=== PATIENT | male | born 1955 | race Caucasian/White ===

== ENCOUNTER → 2016-07-21 | Outpatient (CLI) | payer BC | LOC: CIMAGING 10:17 | PROVIDERS: ATTEND Family Medicine | DX: R91.8 Other nonspecific abnormal finding of lung field (principal) | CPT/HCPCS: 71250-PO ==

== ENCOUNTER → 2016-08-27 | Outpatient (CLI) | payer BC | LOC: FIMAGING 08:54 | PROVIDERS: ATTEND Surgery | DX: Z01.818 Encounter for other preprocedural examination (principal); K56.60 Unspecified intestinal obstruction ==

== ENCOUNTER 2016-09-18 08:06 | Inpatient (IN) | payer BC ==
--- NOTE | 2016-09-17 18:36 | GHP ---
[f rep st] PREOP HISTORY AND PHYSICAL DATE OF ADMISSION: 09/18/2016 HISTORY OF PRESENT ILLNESS: The patient is a 61-year-old male who underwent sigmoid colon colectomy with low anterior anastomosis and splenic flexure mobilization, laparoscopic cholecystectomy, and l aparoscopic intraabdominal orchiectomy on 03/13/2015 for recurrent diverticulitis with an abscess, c holelithiasis, and an undescended left testicle respectively. He also has a past medical history fo r a suspected colon cancer that was resected in May 2010 with benign findings. The patient reports having intermittent left lower quadrant abdominal pain and intermittent narrow, small, and painful bowel movements. 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 It was last measured in September at 8 mm. He also complains of 2 fat ty tissue masses, one on each shoulder, which he would also like removed if he is to have surgery. Patient had a barium enema characterizing this stricture, and it is amenable to surgical correction. PAST MEDICAL HISTORY: Please see above. SURGICAL HISTORY: Please see above. MEDICATIONS: Include Nexium. ALLERGIES: No known drug allergies. SOCIAL HISTORY: Patient is . FAMILY HISTORY: Noncontributory. REVIEW OF SYSTEMS: 10-point review of systems negative aside from the HPI. PHYSICAL EXAMINATION: GENERAL: Well-developed, well-nourished 61-year-old male, alert and oriented x3 and in no acute distress. HEENT: Normocephalic, atraumatic. No jaundice. CHEST: Clear to au scultation bilaterally. CARDIAC: Regular rate and rhythm. ABDOMEN: Soft, nontender. Well-healed scar. No hernias. EXTREMITIES: Warm and dry. IMPRESSION: This is a 61-year-old male with a history of colon resection, now with an anastomotic s tricture recalcitrant to colonoscopic dilation. PLAN: Plan is to proceed with laparoscopic, possible open, anastomotic resection and revision. Ris ks and options have been discussed including, but not limited to, bleeding, infection, nerve injury, recurrence, damage to surrounding structures, open surgery, anastomotic leak, anastomotic stricture , and other problems, and he requests to proceed. /[id number]/MODL
[2016-09-18] MEDS ORDERED: LR 1,000 ML IV SCH (08:19)
[2016-09-18] MEDS ORDERED: cefOXitin SODIUM 2 GM in D5W 100 ML IV ONE (08:19)
[2016-09-18] MEDS ORDERED: ONDANSETRON 4 MG/2 ML VIAL IVP ONE (08:19)
[2016-09-18] MEDS ORDERED: LR 1,000 ML IV ONE (08:27)
[2016-09-18] MEDS ORDERED: LIDOCAINE 1% 2 ML INJ ID PRN (08:27)
[2016-09-18] MEDS ORDERED: BUPIVACAINE 0.5% 30 ML SDV ONE ×2 (08:47→12:32)
[2016-09-18] MEDS ORDERED: HEPARIN 1000 UNIT/1 ML MDV ONE (08:47)
[2016-09-18] MEDS ORDERED: ceFAZolin 1 GM/5 ML SYR ONE (08:47)
[2016-09-18] MEDS ORDERED: MIDAZOLAM 2 MG/2 ML VIAL IVP ONE (08:51)
--- NOTE | 2016-09-18 08:54 | PDANEPAE ---
ANE History of Present Illness Laparoscopic vs. open colon resection ANE Past Medical History - Cardiovascular History Hx Hypertension: No Hx Arrhythmias: No Hx Chest Pain: No Hx Coronary Artery / Peripheral Vascular Disease: No Hx CHF / Valvular Disease: No Hx Palpitations: No - Pulmonary History Hx COPD: No Hx Asthma/Reactive Airway Disease: No Hx Recent Upper Respiratory Infection: No Hx Oxygen in Use at Home: No Hx Sleep Apnea: No Sleep Apnea Screening Result - Last Documented: Negative - Neurologic History Hx Cerebrovascular Accident: No Hx Seizures: No Hx Dementia: No - Endocrine History Hx Diabetes: No Hypothyroid: No Hyperthyroid: No Obesity: no - Renal History Hx Renal Disorders: Yes Renal History Comment: URETHRAL STENT IN PAST /REMOVED - Liver History Hx Hepatic Disorders: Yes Hepatic History Comment: CHOLECYSTECTOMY - Neurological & Psychiatric Hx Hx Neurological and Psychiatric Disorders: Yes Neurological / Psychiatric History Comment: OCCASIONAL MIGRAINE THINKS ITS SINUS RELATED - Cancer History Hx Cancer: No - Congenital Disorder History Hx Congenital Disorders: No - GI History GERD: mild Hx Gastrointestinal Disorders: Yes Gastrointestinal History Comment: REFLUX. DIVERTICULITIS ATTACKS X 2. ESOPHAGEL DILATION 2012 - Other Health History Other Health History: UNDESCENDED LT TESTICLE. OSTEOARTHRITIS - Chronic Pain History Chronic Pain: No - Surgical History Prior Surgeries: 02/2015 BOWEL RESECTION. CHOLECYSTECTOMY. 09/2015 COLONOSCOPY W/BALLOON. URETHEROSCOPY WITH STENT 2011 WITH POST STENT REMVL. COLONOSCOPIES X3. TONSILLECTOMY ANE Review of Systems Review of systems is: negative - Exercise capacity Exercise capacity: >=4 METS METS (RN): 4 METS - Systems Constitutional: Reports: no symptoms EENMT: Reports: no symptoms Cardiac: Reports: no symptoms Respiratory: Reports: no symptoms Gastrointestinal: Reports: no symptoms Genitourinary: Reports: hematuria (Last 2011) Muscolosketal: Reports: no symptoms Skin: Reports: no symptoms Neurological: Reports: headache Hematologic/Lymphatic: Reports: no symptoms ANE Patient History - Allergies Allergies/Adverse Reactions: No Known Allergies Allergy (Verified 11/12/15 10:08) - Home Medications Home Medications: Esomeprazole Mag Trihydrate [Nexium] 40 mg PO DAILY 07/18/14 [Last Taken ] Fluticasone Nasal [Flonase Nasal [place]] 1 sprays NASAL DAILY PRN 08/22/15 [Last Taken 09/07/15] Herbals/Supplements -Info Only 1 ea PO DAILY 09/09/15 [Last Taken Unknown] - NPO status NPO Since - Solids (Date): 09/17/16 NPO Since - Solids (Time): 11:00 - Anes Hx Anes Hx: no prior problems - Smoking Hx Smoking Status: Never smoked Marijuana use: No - Alcohol Use Alcohol Use: Occasionally - Family Anes Hx Family Anes Hx: neg - N/A ANE Labs/Vital Signs - Vital Signs Height: 167.64 cm Weight: 73.482 kg ANE Physical Exam - Airway Neck exam: decreased ROM Mallampati Score: Class 3 Mouth exam: normal dental/mouth exam - Pulmonary Pulmonary: no respiratory distress, no rales or rhonchi, clear to auscultation - Cardiovascular Cardiovascular: regular rate and rhythym, no murmur, rub, or gallop - ASA Status ASA Status: II ANE Anesthesia Plan Anesthesia Plan: general endotracheal anesthesia
[2016-09-18 09:03] LABS: % IMMATURE GRANULYOCYTES 0.5 % (0.0-1.1); ABSOLUTE IMMATURE GRANULOCYTES 0.04 10^3/uL (0.00-0.10); ADD DIFF? NO; ADD MORPH? NO; ADD SCAN? NO; ATYPICAL LYMPHOCYTE FLAG 10 (0-99); FRAGMENT RBC FLAG 0 (0-99); HEMATOCRIT 50.2 % (40.0-51.0); HEMOGLOBIN 16.8 g/dL (13.7-17.5); LEFT SHIFT FLG 0 (0-99); LIPEMIA HEMOLYSIS FLAG 80 (0-99); MEAN CELL HEMOGLOBIN 29.1 pg (27.9-34.1); MEAN CELL HEMOGLOBIN CONCENTR. 33.5 g/dL (32.4-36.7); MEAN PLATELET VOLUME 9.9 fL (8.7-11.7); PLATELET CLUMPS FLAG 0 (0-99); PLATELET COUNT 251 10^3/uL (150-400); RED BLOOD CELL COUNT 5.77 10^6/uL (4.40-6.38); RED CELL DISTRIBUTION WIDTH 12.7 % (11.5-15.2)
[2016-09-18] MEDS ORDERED: PROPOFOL 200 MG/20 ML VIAL ONE ×2 (09:07→12:18)
[2016-09-18] MEDS ORDERED: fentaNYL 100 MCG/2 ML INJ ONE ×3 (09:07)
[2016-09-18] MEDS ORDERED: PROPOFOL/EMULSION 500 MG/50 ML BOTTLE IV ONE ×2 (09:08→10:40)
[2016-09-18] MEDS ORDERED: DEXAMETHASONE 4 MG/ML VIAL ONE (09:09)
[2016-09-18] MEDS ORDERED: ONDANSETRON 4 MG/2 ML VIAL ONE (09:09)
[2016-09-18] MEDS ORDERED: ROCURONIUM 100 MG/10 ML VIAL ONE (09:09)
[2016-09-18] MEDS ORDERED: GLYCOPYRROLATE 0.2 MG/1 ML VIAL ONE (09:09)
[2016-09-18] MEDS ORDERED: LIDOCAINE 2% 5 ML SDV ONE (09:09)
--- NOTE | 2016-09-18 09:10 | PDHPUP ---
History & Physical Update H&P update statement: This history and physical update is based on an assessment of the patient which was completed after admission or registration (within 24 hours), but prior to the surgery/procedure. H&P update: H&P reviewed & patient examined, no change in patient's condition since H&P completed
[2016-09-18] MEDS ORDERED: HYDROmorphONE/DILAUDID 2 MG/ML INJ ONE (09:35)
[2016-09-18 09:42] LABS: ANION GAP 10 mEq/L (8-16); CALCIUM 8.9 mg/dL (8.5-10.4); CARBON DIOXIDE 25 mEq/l (22-31); CHLORIDE 108 mEq/L (97-110); CREATININE 0.9 mg/dL (0.7-1.3); GLOMERULAR FILTRATION RATE > 60; GLUCOSE 94 mg/dL (70-100); POTASSIUM 4.2 mEq/L (3.5-5.2); SODIUM 143 mEq/L (134-144)
[2016-09-18] MEDS ORDERED: METOPROLOL TARTRATE 5 MG/5 ML INJ ONE (10:15)
[2016-09-18] MEDS ORDERED: fentaNYL 100 MCG/2 ML INJ IVP PRN (12:21)
[2016-09-18] MEDS ORDERED: NALOXONE HCL 0.4 MG/ML INJ IVP PRN ×2 (12:21→13:58)
[2016-09-18] MEDS ORDERED: HYDROCODONE/APAP 5/325 TAB PO PRN (12:21)
[2016-09-18] MEDS ORDERED: PROMETHAZINE HCL 25 MG/ML INJ IVP PRN (12:21)
[2016-09-18] MEDS ORDERED: HYDROmorphONE/DILAUDID 1 MG/ML SYR IVP PRN (12:21)
[2016-09-18] MEDS ORDERED: OXYCODONE/APAP 5/325 TAB PO PRN (12:21)
[2016-09-18] MEDS ORDERED: ONDANSETRON 4 MG/2 ML VIAL IVP PRN ×2 (12:21→13:56)
[2016-09-18] MEDS ORDERED: KETOROLAC 30 MG/1 ML SDV ONE (12:42)
[2016-09-18] MEDS ORDERED: SUGAMMADEX SODIUM 200 MG/2 ML VIAL IVP ONE (13:11)
--- NOTE | 2016-09-18 13:43 | POSTOPPROG ---
Post Op Note Date of Operation: 09/18/16 Surgeon: Reinaldo Ventura Barrel Straightener: dayanara Anesthesiologist: jace Anesthesia: GET(General Endotracheal) Pre-op Diagnosis: rectosigmoid stricture Post-op Diagnosis: same Indication: pain Procedure: lowant resection and anastamosis Findings: very tight stricture and lots of fibrosis Inf/Abcess present in the surg proc area at time of surgery?: No Depth: Organ Space EBL: 50-100 Complications: 0 Specimen(s): colon segment
--- NOTE | 2016-09-18 13:45 | POSTOPPROG ---
Post Op Note Date of Operation: 09/18/16 Surgeon: Reinaldo Ventura Anesthesiologist: jace Anesthesia: GET(General Endotracheal) Pre-op Diagnosis: bilat arm masses Post-op Diagnosis: bilat lipomas Indication: enlarging Procedure: excision of bilat deltoid area lipomas Findings: left shoulder 10cm multilobulated lipma/ rt shoulder 4cm lipoma Inf/Abcess present in the surg proc area at time of surgery?: No Depth: Deep Incisional (Fascial) EBL: Minimal Complications: 0 Specimen(s): bilat arm lipomas
[2016-09-18] MEDS ORDERED: HYDROmorphONE/DILAUDID 6 MG/30 ML PCA IV PRN (13:58)
[2016-09-18] MEDS: KETOROLAC 15 MG/1 ML SDV IVP SCH ×2 (17:27→23:00)
[2016-09-18] MEDS: D5W 1/2 NS W/ 20 KCl/L 1,000 ML IV SCH (23:00)
[2016-09-19 05:06] LABS: % IMMATURE GRANULYOCYTES 0.1 % (0.0-1.1); ABSOLUTE IMMATURE GRANULOCYTES 0.01 10^3/uL (0.00-0.10); ADD DIFF? NO; ADD MORPH? NO; ADD SCAN? NO; ATYPICAL LYMPHOCYTE FLAG 0 (0-99); FRAGMENT RBC FLAG 0 (0-99); HEMOGLOBIN 13.1 g/dL (13.7-17.5); LEFT SHIFT FLG 0 (0-99); LIPEMIA HEMOLYSIS FLAG 80 (0-99); MEAN CELL HEMOGLOBIN 28.9 pg (27.9-34.1); MEAN CELL VOLUME 90.3 fL (81.5-99.8); PLATELET CLUMPS FLAG 0 (0-99); PLATELET COUNT 222 10^3/uL (150-400); RED BLOOD CELL COUNT 4.54 10^6/uL (4.40-6.38); RED CELL DISTRIBUTION WIDTH 12.9 % (11.5-15.2)
[2016-09-19] MEDS: KETOROLAC 15 MG/1 ML SDV IVP SCH ×4 (05:16→23:45)
[2016-09-19] MEDS: D5W 1/2 NS W/ 20 KCl/L 1,000 ML IV SCH ×2 (05:17→20:48)
[2016-09-19] MEDS: ERTAPENEM 1 GM in NS 100 ML IV SCH (08:23)
--- NOTE | 2016-09-19 10:15 | POSTANESTH ---
Post Anesthetic Evaluation Cardiovascular Status: Similar to Pre-Op Cond Respiratory Status: Similar to Pre-op Cond. Level of Consciousness/Mental Status: Other, See Comment Pain Control: Adequate, Prn Tx Ordered Nausea/Vomiting Control: Adequate, Prn Tx Ordered (Patient asleep. Normal respiration. Pod 1) Complications Possibly Related to Anesthesia: None Noted
--- NOTE | 2016-09-19 13:16 | SOAPPROG ---
SOAP Progress Note Assessment/Plan: Assessment: Doing well s/p partial colectomy/abdomen soft/good bowel sounds in positive flatus/afebrile Chest clear/vital signs stable/urine output adequate Plan: Advance diet 09/19/16 13:15 Objective: Vital Signs Temp Pulse Resp BP Pulse Ox 36.6 C 60 16 99/62 L 94 09/19/16 11:56 09/19/16 11:56 09/19/16 11:56 09/19/16 11:56 09/19/16 11:56 Laboratory Results 09/19/16 04:32 09/18/16 08:19 09/18/16 09/19/16 09/20/16 05:59 05:59 05:59 Intake Total 3430 Output Total 720 Balance 2710 ICD10 Worksheet Patient Problems: Problems Problem Status Onset Colonic stricture Acute Diverticulitis Acute
[2016-09-20] MEDS: D5W 1/2 NS W/ 20 KCl/L 1,000 ML IV SCH (03:50)
[2016-09-20] MEDS: KETOROLAC 15 MG/1 ML SDV IVP SCH ×3 (05:34→17:45)
[2016-09-20] MEDS: ERTAPENEM 1 GM in NS 100 ML IV SCH (08:19)
[2016-09-20] MEDS: ENOXAPARIN 40 MG/0.4 ML SYR SC SCH (08:20)
[2016-09-20] MEDS: OXYCODONE/APAP 5/325 TAB PO PRN ×4 (08:20→20:08)
--- NOTE | 2016-09-20 13:06 | SOAPPROG ---
SOAP Progress Note Assessment/Plan: Assessment: Doing well s/p partial colectomy/abdomen soft/good bowel sounds in positive flatus/afebrile Chest clear/vital signs stable/urine output adequate Plan: Advance diet 09/19/16 13:15 09/20/16 13:05 AFEBRILE/ LOTS OF FLATUS AND BM/ UO OK/ PLAN DC GIRON, FULL LIQUIDS Objective: Vital Signs Temp Pulse Resp BP Pulse Ox 36.9 C 72 14 110/77 91 L 09/20/16 11:45 09/20/16 11:45 09/20/16 11:45 09/20/16 11:45 09/20/16 11:45 Laboratory Results 09/19/16 04:32 09/18/16 08:19 09/19/16 09/20/16 09/21/16 05:59 05:59 05:59 Intake Total 3430 3055 Output Total 720 2800 800 Balance 2710 255 -800 ICD10 Worksheet Patient Problems: Problems Problem Status Onset Colonic stricture Acute Diverticulitis Acute
[2016-09-20] MEDS ORDERED: FLUTICASONE NASAL 120 SPRAYS/16 GM MDI EACHNARE PRN (13:08)
[2016-09-21] MEDS: OXYCODONE/APAP 5/325 TAB PO PRN ×3 (00:27→09:35)
[2016-09-21] MEDS: KETOROLAC 15 MG/1 ML SDV IVP SCH ×3 (00:28→12:47)
[2016-09-21 08:21] VITALS: BP 124/80; PULSE 77; RESP 16; TEMP 98; O2SAT 92
[2016-09-21] MEDS ORDERED: NON-FORMULARY NEW DRUG (Esomeprazole Mag Trihydrate [Nexium] 40 MG) PO SCH (09:00)
[2016-09-21] MEDS ORDERED: PANTOPRAZOLE SODIUM 40 MG TAB PO SCH (09:00)
[2016-09-21] MEDS: ENOXAPARIN 40 MG/0.4 ML SYR SC SCH (10:20)
[2016-09-21] MEDS: ERTAPENEM 1 GM in NS 100 ML IV SCH (10:22)
--- NOTE | 2016-09-21 13:13 | SOAPPROG ---
SOAP Progress Note Assessment/Plan: Assessment: Doing well s/p partial colectomy/abdomen soft/good bowel sounds in positive flatus/afebrile Chest clear/vital signs stable/urine output adequate Plan: Advance diet 09/19/16 13:15 09/20/16 13:05 AFEBRILE/ LOTS OF FLATUS AND BM/ UO OK/ PLAN DC GIRON, FULL LIQUIDS 09/21/16 13:12 DOING GREAT/ WOUND OK/ AFEBRILE/ TOLERATING REG DIET/ +BM AND FLATUS/ ABD SOFT, NONTENDER/ HOME Objective: Vital Signs Temp Pulse Resp BP Pulse Ox 36.6 C 77 16 124/80 H 92 09/21/16 08:00 09/21/16 08:00 09/21/16 08:00 09/21/16 08:00 09/21/16 08:00 Laboratory Results 09/19/16 04:32 09/18/16 08:19 09/20/16 09/21/16 09/22/16 05:59 05:59 05:59 Intake Total 3055 850 Output Total 2800 800 Balance 255 50 ICD10 Worksheet Patient Problems: Problems Problem Status Onset Colonic stricture Acute Diverticulitis Acute
== END 2016-09-21 14:37 | disposition home or self-care (01) | DRG 330 ==
LOC: F3E 08:06
PROVIDERS: ADMIT Surgery; ATTEND Surgery
PROC: 0DBN0ZZ Excision of Sigmoid Colon, Open Approach (ICD-10-PCS; principal; 2016-09-18 09:30)
PROC: 0WJG4ZZ Inspection of Peritoneal Cavity, Percutaneous Endoscopic Approach (ICD-10-PCS; principal; 2016-09-18 09:30)
DX: K91.89 Other postprocedural complications and disorders of digestive system (principal); K56.69 Other intestinal obstruction; D17.20 Benign lipomatous neoplasm of skin and subcutaneous tissue of unspecified limb; D17.21 Benign lipomatous neoplasm of skin and subcutaneous tissue of right arm; Z53.31 Laparoscopic surgical procedure converted to open procedure; K21.9 Gastro-esophageal reflux disease without esophagitis
CPT/HCPCS: J0694; J1100; J1170; J1335; J1650; J1885; J2250; J2405; J2704; J3010